=== PATIENT | female | born 1995 | race Caucasian/White ===

== ENCOUNTER 2018-05-13 23:28 | Emergency (ER) | payer OTHER ==
[2018-05-13 23:39] VITALS: TEMP 98.6
--- NOTE | 2018-05-14 00:18 | ED ---
Lower Extremity Injury HPI - General Source: patient Mode of arrival: ambulatory Limitations: no limitations <Meryl Cruz - Last Filed: 05/14/18 00:55> <Sheba Donaldson - Last Filed: 05/14/18 01:09> - General Chief Complaint: Extremity Injury, Lower Stated Complaint: L Foot Injury/Laceration [facility] Time Seen by Provider: 05/13/18 23:35 - History of Present Illness Initial Comments: 22-year-old female presenting today for chief complaint of left great toe pain. Patient states this is about 30 minute prior to arrival she was at work at [employer] in the [place] when she was moving a cooler, she states it was metal and it fell onto her left great toe. Patient states there is a small laceration as well as bruising. Patient states is painful to range and to walk on. Patient denies any numbness, tingling or loss of sensation. Pt denies pain of the forefoot or ankle. Remaining ROS (-), pt denies fall, or injury to other extremity. Patient denies any recent fever, chills, shortness of breath, chest pain, back pain, abdominal pain, nausea or vomiting, numbness or tingling, dysuria or hematuria, constipation or diarrhea, headaches or visual changes, or any other complaints. VS within acceptable limits upon arrival. (Meryl Cruz) - Related Data Allergies Allergy/AdvReac Type Severity Reaction Status Date / Time Milk Containing Products AdvReac Rash/Hives Verified 05/13/18 23:40 [Dairy] Review of Systems ROS Other: All systems not noted in ROS Statement are negative. <Meryl Cruz - Last Filed: 05/14/18 00:55> ROS Other: All systems not noted in ROS Statement are negative. <Sheba Donaldson - Last Filed: 05/14/18 01:09> ROS Statement: Those systems with pertinent positive or pertinent negative responses have been documented in the HPI. Past Medical History Past Medical History: No Reported History History of Any Multi-Drug Resistant Organisms: None Reported Additional Past Surgical History / Comment(s): RIGHT FEMUR ORTHOPEDIC REPAIR 2005, CYST REMOVED FROM SKULL IN 2010 Past Psychological History: Anxiety, Depression Smoking Status: Never smoker Past Alcohol Use History: None Reported Past Drug Use History: None Reported <Meryl Cruz - Last Filed: 05/14/18 00:55> General Exam Limitations: no limitations <Meryl Cruz - Last Filed: 05/14/18 00:55> <Sheba Donaldson - Last Filed: 05/14/18 01:09> - General Exam Comments Initial Comments: General: The patient is awake and alert, in no distress, and does not appear acutely ill. Eye: Pupils are equal, round and reactive to light, extra-ocular movements are intact. No nystagmus. There is normal conjunctiva bilaterally. No signs of icterus. Neck: The neck is supple, there is no tenderness or JVD. Cardiovascular: There is a regular rate and rhythm. No murmur, rub or gallop is appreciated. Respiratory: Lungs are clear to auscultation, respirations are non-labored, breath sounds are equal. No wheezes, stridor, rales, or rhonchi. Musculoskeletal: Upon inspection of the left great toe there is a contusion. There is small area of ecchymosis at the base of the left toenail, this takes up less than 1/6 of the total nail bed. At cuticle there is a superficial scratch. No large laceration, 1.5cm. Superficial skin tear. Pt able to wiggle all five digits of the left foot complaining of great toe and second digits pain. Sensation intact of the digits proximal and distal to injury, no ecchymosis of the forefoot, or arch. No pain to palpation of the forefoot, lisfranc area. Pain to palpation of great toe and second digit of the left foot , capillary refill < 2 seconds. DP pulses equal bilaterally 2+. Neurological: A&O x 3. CN II-XII intact, There are no obvious motor or sensory deficits. Coordination appears grossly intact. Speech is normal. Skin: Skin is warm and dry and no rashes or lesions are noted. Psychiatric: Cooperative, appropriate mood & affect, normal judgment. (Meryl Cruz) Vital Signs 05/13/18 05/14/18 23:34 00:59 Temperature 98.6 F Pulse Rate 66 84 Respiratory 18 16 Rate Blood Pressure 137/83 121/78 O2 Sat by Pulse 100 100 Oximetry Medical Decision Making <Meryl Cruz - Last Filed: 05/14/18 00:55> <Sheba Donaldson - Last Filed: 05/14/18 01:09> - Medical Decision Making Superficial skin abnormalities. Pt states tetanus is UTD. Ecchymosis.contusion of the second and great toe of the left foot. There is a small subungual hematoma. This except less than 1/6 the total nail bed space. Patient is neurovascular intact. XR revealed no acute osseous abnormality. Pt placed in surgical boot and told to take nsaids at home as well as ice and elevate area. Pt is to f/u with primary care provider and return for worsening symptoms. (Meryl Cruz) I was available for consultation in the emergency department. The history and physical exam were done by the Midlevel Provider. Medical decision making was done by the Midlevel Provider. The Midlevel Provider did not contact me for this patient's care. I was not directly involved in this patient's care. (Sheba Donaldson) Disposition Is patient prescribed a controlled substance at d/c from ED?: No Time of Disposition: 00:29 <Meryl Cruz - Last Filed: 05/14/18 00:55> <Sheba Donaldson - Last Filed: 05/14/18 01:09> Clinical Impression: Contusion of great toe, Contusion of small toe of left foot Disposition: HOME SELF-CARE Condition: Good Instructions (If sedation given, give patient instructions): Subungual Hematoma (ED), Contusion in Adults (ED) Additional Instructions: Please use medication as discussed. Please follow-up with family doctor in the next 2 days. Please return to emergency room if the symptoms increase or worsen or for any other concerns. Referrals: Travis Tucker MD [Primary Care Provider] - 1-2 days
[2018-05-14] MEDS ORDERED: IBUPROFEN 600 MG TAB PO STA ×2 (00:27→00:28)
--- NOTE | 2018-05-14 00:44 | XR ---
EXAM: XR Left Foot Complete, 3 or More Views CLINICAL HISTORY: Pain TECHNIQUE: Frontal, lateral and oblique views of the left foot. COMPARISON: No relevant prior studies available. FINDINGS: Bones/joints: Unremarkable. No acute fracture. No dislocation. Soft tissues: Unremarkable. No radiopaque foreign body. IMPRESSION: Normal left foot x-rays.
[2018-05-14 01:00] VITALS: BP 121/78; PULSE 84; RESP 16
== END 2018-05-14 01:00 | disposition home or self-care (01) ==
LOC: EC 23:28
DX: S90.212A Contusion of left great toe with damage to nail, initial encounter (principal); S90.222A Contusion of left lesser toe(s) with damage to nail, initial encounter; Z91.011 Allergy to milk products; W20.8XXA Other cause of strike by thrown, projected or falling object, initial encounter; Y92.69 Other specified industrial and construction area as the place of occurrence of the external cause; Y99.0 Civilian activity done for income or pay
CPT/HCPCS: 99283

== ENCOUNTER → 2018-05-22 | Outpatient (CLI) | payer OTHER ==
--- NOTE | 2018-05-22 12:25 | XR ---
EXAMINATION TYPE: XR toes LT DATE OF EXAM: 05/22/2018 COMPARISON: 05/14/2018 HISTORY: Left foot pain of the first and second digit after injury TECHNIQUE: 3 views of the first through third digits were obtained of the left foot. FINDINGS: No acute fracture or dislocation is seen of the first and third digits of the left foot or metatarsals. No focal soft tissue abnormality is seen radiographically. Osseous mineralization is wit hin normal limits. No radio opaque foreign body. IMPRESSION: No acute fracture or dislocation of the first through third digits nor metatarsals of the left foot.
== END ==
LOC: RADXRMAIN 11:28
PROVIDERS: ATTEND Emergency Medicine
DX: S90.32XD Contusion of left foot, subsequent encounter (principal)